=== PATIENT | male | born 1940 | race Caucasian/White ===

== ENCOUNTER 2018-04-09 21:27 | Inpatient (IN) | payer MEDICAID ==
[2018-04-09] MEDS: IOHEXOL 100 ML (21:51)
[2018-04-09] MEDS: SOD CHLORIDE 0.9% 100 ML (21:51)
[2018-04-09 22:05] LABS: ADD MAN DIFF? NO
[2018-04-09 22:07] LABS: WHITE BLOOD COUNT 7.1 10^3/ul (4.8-10.8)
[2018-04-09 22:07] LABS: BASOPHILS % 0.6 % (0.0-2.0); EOSINOPHILS # 0.5 10^3/ul (0.0-0.5); EOSINOPHILS % 6.8 % (0.0-7.0); HEMATOCRIT 43.2 % (42.0-52.0); HEMOGLOBIN 14.2 g/dl (14.0-18.0); LYMPHOCYTES # 2.9 10^3/ul (0.8-2.9); LYMPHOCYTES % 40.4 % (15.0-51.0); MEAN CORPUSCULAR HGB CONC 32.9 g/dl (32.0-37.0); MEAN CORPUSCULAR VOLUME 82.3 fl (82.0-101.0); MEAN PLATELET VOLUME 10.9 fl (7.4-10.4); MONOCYTE # 0.7 10^3/ul (0.3-0.9); MONOCYTES % 10.1 % (0.0-11.0); PLATELET COUNT 220 10^3/UL (140-415); RED BLOOD COUNT 5.25 10^6/ul (4.70-6.10); RED CELL DISTRIBUTION WIDTH 14.7 % (11.5-14.5)
[2018-04-09 22:26] LABS: INR 1.02; PROTIME 13.5 Sec (11.9-14.9); PT RATIO 1.1
[2018-04-09 22:27] LABS: PARTIAL THROMBOPLASTIN TIME 34.3 Sec (25.0-35.0)
[2018-04-09 22:29] LABS: ANION GAP 16 (8-16); BLOOD UREA NITROGEN 14 mg/dl (7-20); CALCIUM 9.2 mg/dl (8.4-10.2); CARBON DIOXIDE 25 mmol/L (21-31); CHLORIDE 106 mmol/L (97-110); CHOL/HDL RATIO 3.8 RATIO; CHOLESTEROL 164 mg/dl (100-200); CREATINE KINASE 56 IU/L (23-200); CREATININE 1.09 mg/dl (0.61-1.24); GLUCOSE 124 mg/dl (70-220); HDL CHOLESTEROL 43 mg/dl (31-75); LDL CHOLESTEROL,CALCULATED 84 mg/dl; POTASSIUM 3.7 mmol/L (3.5-5.1); SODIUM 143 mmol/L (135-144); TRIGLYCERIDES 185 mg/dl (0-149)
[2018-04-09 22:31] LABS: HEMOGLOBIN A1C 6.3 % (0-5.9)
[2018-04-09 22:39] LABS: CK INDEX 1.8; CK-MB 0.99 ng/ml (0.0-2.4); TROPONIN-I 0.065 ng/ml (0.000-0.120)
[2018-04-09 23:12] LABS: AMPHETAMINE/METHAMPHETAMINE NEGATIVE (NEGATIVE); BARBITURATES NEGATIVE (NEGATIVE); BENZODIAZEPINES NEGATIVE (NEGATIVE); CANNABINOIDS NEGATIVE (NEGATIVE); COCAINE NEGATIVE (NEGATIVE); OPIATES NEGATIVE (NEGATIVE)
[2018-04-09] MEDS: IOHEXOL 350MG/ML 50 ML BTL (23:24)
[2018-04-09 23:26] LABS: ADD UMIC YES; UR ASCORBIC ACID NEGATIVE (NEGATIVE); UR BILIRUBIN (Dip) NEGATIVE (NEGATIVE); UR BLOOD (Dip) 2+ mg/dL (NEGATIVE); UR CLARITY CLEAR (CLEAR); UR COLOR STRAW (YELLOW); UR GLUCOSE (Dip) NEGATIVE (NEGATIVE); UR KETONES (Dip) NEGATIVE (NEGATIVE); UR LEUKOCYTE ESTERASE (Dip) NEGATIVE Leu/ul (NEGATIVE); UR NITRITE (Dip) NEGATIVE (NEGATIVE); UR RBC 0 /HPF (0-5); UR SPECIFIC GRAVITY (Dip) 1.009 (1.003-1.030); UR TOTAL PROTEIN (Dip) NEGATIVE (NEGATIVE); UR UROBILINOGEN (Dip) NEGATIVE (NEGATIVE); UR WBC 0 /HPF (0-5)
[2018-04-10] MEDS ORDERED: ACETAMINOPHEN 325 MG TAB PO (01:00)
[2018-04-10] MEDS ORDERED: ASPIRIN 81 MG TAB PO (01:00)
[2018-04-10] MEDS ORDERED: DOCUSATE SODIUM 100 MG CAP PO (01:00)
[2018-04-10] MEDS ORDERED: NACL 0.9% 3 ML SYG IV (01:00)
[2018-04-10] MEDS ORDERED: ONDANSETRON 4 MG INJ IV (01:00)
[2018-04-10] MEDS ORDERED: BISACODYL (EC) 5 MG TAB PO (01:00)
[2018-04-10] MEDS ORDERED: ACETAMINOPHEN 650 MG SUPP PR (02:00)
[2018-04-10] MEDS: POTASSIUM CHLORIDE 100 ML IVPB ×2 (04:00→04:02)
[2018-04-10] MEDS: SOD CHLORIDE 0.9% 1,000 ML IV (04:02)
[2018-04-11 06:03] LABS: ADD MAN DIFF? NO
[2018-04-11 06:06] LABS: BASOPHIL # 0.1 10^3/ul (0.0-0.1); BASOPHILS % 0.4 % (0.0-2.0); EOSINOPHILS # 0.1 10^3/ul (0.0-0.5); EOSINOPHILS % 1.1 % (0.0-7.0); HEMATOCRIT 45.7 % (42.0-52.0); HEMOGLOBIN 15.3 g/dl (14.0-18.0); LYMPHOCYTES # 1.6 10^3/ul (0.8-2.9); LYMPHOCYTES % 14.1 % (15.0-51.0); MEAN CORPUSCULAR HEMOGLOBIN 26.9 pg (29.0-33.0); MEAN CORPUSCULAR HGB CONC 33.5 g/dl (32.0-37.0); MEAN CORPUSCULAR VOLUME 80.3 fl (82.0-101.0); MONOCYTE # 0.9 10^3/ul (0.3-0.9); MONOCYTES % 8.1 % (0.0-11.0); NEUTROPHIL # 8.6 10^3/ul (1.6-7.5); PLATELET COUNT 229 10^3/UL (140-415); RED BLOOD COUNT 5.69 10^6/ul (4.70-6.10); RED CELL DISTRIBUTION WIDTH 14.3 % (11.5-14.5)
[2018-04-11 06:06] LABS: WHITE BLOOD COUNT 11.3 10^3/ul (4.8-10.8)
[2018-04-11 06:22] LABS: HEMOGLOBIN A1C 6.2 % (0-5.9)
[2018-04-11 06:33] LABS: ALANINE AMINOTRANSFERASE 19 IU/L (13-69); ALBUMIN 4.1 g/dl (3.3-4.9); ALBUMIN/GLOBULIN RATIO 1.02; ALKALINE PHOSPHATASE 68 IU/L (42-121); ANION GAP 17 (8-16); ASPARTATE AMINO TRANSFERASE 29 IU/L (15-46); BLOOD UREA NITROGEN 14 mg/dl (7-20); CALCIUM 9.6 mg/dl (8.4-10.2); CARBON DIOXIDE 25 mmol/L (21-31); CHLORIDE 103 mmol/L (97-110); CHOL/HDL RATIO 3.2 RATIO; CHOLESTEROL 170 mg/dl (100-200); CREATININE 0.99 mg/dl (0.61-1.24); GLUCOSE 116 mg/dl (70-220); HDL CHOLESTEROL 53 mg/dl (31-75); LDL CHOLESTEROL,CALCULATED 98 mg/dl; MAGNESIUM 1.6 mg/dl (1.7-2.5); POTASSIUM 3.9 mmol/L (3.5-5.1); SODIUM 141 mmol/L (135-144); TOTAL PROTEIN 8.1 g/dl (6.1-8.1); TRIGLYCERIDES 95 mg/dl (0-149)
[2018-04-11] MEDS: MAGNESIUM SULFATE 2 GM/50 ML 50 ML IVPB (09:01)
[2018-04-11] MEDS: ASPIRIN 81 MG TAB PO (09:01)
[2018-04-11] MEDS: MAGNESIUM OXIDE 400 MG TAB PO (09:12)
[2018-04-12] MEDS: ATORVASTATIN 80 MG TAB PO (01:01)
[2018-04-12] MEDS: ASPIRIN 81 MG TAB PO (09:42)
== END 2018-04-12 16:59 | disposition home or self-care (01) | DRG 66 ==
LOC: 6WM 04-11 01:30 → E/R 21:27 → ICU 04-10 00:48
DX: I63.9 Cerebral infarction, unspecified (principal); I10 Essential (primary) hypertension; E78.5 Hyperlipidemia, unspecified; R47.01 Aphasia; R29.810 Facial weakness; Z79.82 Long term (current) use of aspirin
CPT/HCPCS: 36415; 70450; 70496; 70498; 70551; 71045; 80048; 80053; 80061; 80307; 81001; 82550; 82553; 83036; 83735; 84443; 84484; 85025; 85610; 85730; 87081; 92523; 92526; 92610; 93005; 93306; 97110; 97116; 97162; 97166; 97530; 99285-25